=== PATIENT | male | born 1960 | race Caucasian/White ===

== ENCOUNTER 2016-10-26 11:49 | Emergency (ER) | payer BC ==
[~2016-10-26] VITALS: Ht 185.4 cm; Wt 116.7 kg
[~2016-10-26 11:49] MED LIST: ALBUAER2 INH; ALL180 PO; AZIT250T PO; FLUT0.15 NAE; MOME200A INH; MONT1TAB3 PO; MULTTAB58 PO; OMEG10007 PO; PRED10TA PO; PRLSR20 PO; TIOTCAP INH
[2016-10-26 11:53] VITALS: BP 150/80; PULSE 79; TEMP 36.7; O2SAT 97; Ht 185.4 cm; Wt 116.7 kg
[2016-10-26] MEDS ORDERED: FEXO1TAB46 PO (12:12)
[2016-10-26] MEDS ORDERED: SPRIN/30 INH (12:12)
[2016-10-26] MEDS ORDERED: VNTHFA/IN INH (12:12)
[2016-10-26] MEDS ORDERED: CEPH500C PO (12:15)
--- NOTE | 2016-10-26 12:16 | EMERGENCY ROOM VISIT NOTE ---
ED Visit Note First contact with patient: 12:01 Chief Complaint: "Left forearm laceration, swelling at site" History of Present Illness: This patient is a 56-year-old male who presents to the Emergency Department via private vehicle for evaluation of their left dorsal forearm laceration. Patient sustained the laceration while attempting to disassemble items at the fourth fest, as she was cutting a zip tie the knife and slipped and punctured his arm. They report a moderate amount of bleeding initially. They deny any numbness or tingling into the distal extremity. There is full range of motion of this extremity. He states he cleansed the wound, and then new skin glue was applied over the wound. A bulge then developed underneath the laceration. Patient rates his current discomfort as a 0/10. Patient's Tetanus status is currently up-to-date. Medications: As noted below Allergies: No medical PMH: Asthma, bronchitis, pneumonia, emphysema SHx: Patient lives with and 2 children. ROS: All pertinent positive and negative review of systems are appropriately documented in the History of Present Illness. Physical Exam: VITAL SIGNS - Vital signs and nursing notes were reviewed. Stable. GENERAL -56-year-old male appearing his stated age who is in no acute distress. Communicates well with provider and answers questions appropriately. SKIN - There is a 1 cm long laceration noted in the transverse plane on the dorsal aspect of the left midforearm. The edges do NOT gape apart with traction. No foreign bodies appreciated. Upon further examination there are no deep structures including vessel, tendon, or bony structures appreciated. There is no active bleeding noted. MUSCULOSKELETAL -full range of motion of the left arm. Strength is symmetric. NEUROLOGIC -no neurovascular deficits. VASCULAR - Capillary refill was brisk. ED Course: Patient was seen and evaluated by myself. Risks and benefits of performing primary wound closure versus no repair were discussed with the patient who verbalizes understanding. The patient presents with a cleansed wound, that has been closed with some type of medical glue. The region appears to be intact, and the glue appears to be very strong. Benefits versus risk of trying to dissolve the glue, and then irrigate and close the wound was discussed with the patient. The decision was made to leave the wound closed with the previous glue , and provided him with an antibiotic to help prevent infection. I suspect he is developing a hematoma on the forearm. There is no evidence of arterial bleeding. It is not enlarged. Conservative measurements were discussed. He' ll be prescribed Keflex for infection prophylaxis. He is to return with worsening. He was educated upon management, educated upon worrisome symptoms in which to return, had questions prior to discharge, and was discharged home in good condition. In the evaluation and treatmen of t this patient following differential diagnoses were entertained: Laceration, among others. Problem List Medical Problems: (1) [id number] deficiency Status: Chronic (2) Asthma Status: Chronic (3) GERD (gastroesophageal reflux disease) Status: Chronic Surgical Problems: (1) History of arthroscopy of right shoulder Status: Resolved Current/Historical Medications Scheduled Azithromycin (Zithromax), 250 MG PO UD Cephalexin Monohydrate (Keflex), 500 MG PO TID Fexofenadine Hcl (Suzette), 180 MG PO DAILY Fish Oil ([place]rie-3), 1 CAP PO DAILY Mometasone Furoate-Formoterol (Dulera 200/5 Mcg), 2 PUFFS INH BID Montelukast Sodium (Singulair), 10 MG PO DAILY Multiple Vitamin (Multivitamin), 1 TAB PO DAILY Omeprazole (Prilosec), 20 MG PO BID Prednisone Tab (Prednisone), 10 MG PO UD Tiotropium [place] (Spiriva Handihaler), 1 CAP INH DAILY Scheduled PRN Albuterol Hfa (Ventolin Hfa), 2 PUFFS INH Q6H PRN for SOB/Wheezing Allergies Coded Allergies: Nut Tree (Verified Allergy, Intermediate, NAUSEA, VOMITING, 12/29/14) NUTS (Verified Allergy, Unknown, tree nuts, 12/29/14) Vital Signs Date Time Temp Pulse Resp B/P (MAP) Pulse Ox O2 Delivery O2 Flow Rate FiO2 10/26/16 11:53 36.7 79 20 150/80 97 Room Air Departure Information Impression Primary Impression: Laceration Dispostion Home / Self-Care Condition GOOD Prescriptions Cephalexin Monohydrate (Keflex) 500 Mg Cap 500 MG PO TID, #21 CAP Prov: Jordon Stern PA-C 10/26/16 Referrals No Doctor, Assigned (PCP) Patient Instructions My [facility] Additional Instructions Discharge Instructions: Proper wound care is essential for adequate wound healing and infection prevention. You can shower and clean the wound with soap and water. Do not scour over the wound, pat dry with a towel. Do not submerse the wound (i.e. bathe or dish wash) until the glue dissolves and the wound heals over. PLEASE watch for signs of infection of the wound including: increased pain, swelling, foul discharge, streaking, or increased temperature. If any of these are noticed you should return to the Emergency Department for further assessment and treatment! As with any laceration you may have received nerve damage to the surrounding tissues. This damage may or may not be permanent. You should keep the area covered with sunscreen for the first 6 months to 1 year when at risk for exposure to help minimize scarring. You can also use scar reducing creams or Vitamin E oil to help minimize scarring. For the hematoma formation under the skin, please ice the area 30-40 minutes at a time, 5-6 times a day for the next 2-3 days. This will help with the hematoma formation. This will take weeks to heal. Please put a barrier between the skin and the ice. For pain control, you can use the following [id number] medicines (if >12 yo): - Regular strength (325mg/tab) Tylenol (acetaminophen) 2 tabs every 4-6 hours as needed. Do not exceed 12 tablets in a 24 hour period. Avoid taking more than grams (3000 mg) of Tylenol per day. This includes any other sources of acetaminophen you may take on a regular basis. - Regular strength (200 mg/tab) Advil (ibuprofen) 1-2 tabs every 4-6 hours as needed. Do not exceed a dose of 3200 mg per day. Return to the emergency department if your symptoms worsen despite treatment course outlined above.
== END 2016-10-26 12:20 | disposition home or self-care (01) ==
LOC: C.EDB 11:51 → C.EDD 12:20
DX: S51.812A Laceration without foreign body of left forearm, initial encounter (principal); J43.9 Emphysema, unspecified; J45.909 Unspecified asthma, uncomplicated; K21.9 Gastro-esophageal reflux disease without esophagitis; Z79.899 Other long term (current) drug therapy; Z87.01 Personal history of pneumonia (recurrent); Z87.09 Personal history of other diseases of the respiratory system; W26.0XXA Contact with knife, initial encounter